=== PATIENT | female | born 1980 | race Caucasian/White ===

== ENCOUNTER 2016-12-17 13:11 | Inpatient (IN) | payer SELFPAY ==
--- NOTE | ~2016-12-17 | HP ---
Unit #: [id number] #: [id number] Patient: KANDI UNDERWOOD [id number] [place] [address] [id number] MR#: [id number] NAME: KANDI UNDERWOOD ROOM: P122 Age: 36 Sex: F Admission Date: 12/17/2016 : 1980 Attending Physician: Franki Edmondson M.D. Admitting Physician: Franki Edmondson M.D. Primary Care Physician: No Primary Care Physician HISTORY AND PHYSICAL HISTORY OF PRESENT ILLNESS Kandi is a 36-year-old admitted to [address] [place] [address] after she was found wandering in the parking lot "not making sense." She remains quite psychotic and is a poor historian so her history is taken from her chart. PAST MEDICAL HISTORY Nothing known. PAST SURGICAL HISTORY Nothing reported. ALLERGIES No known drug allergies. SOCIAL HISTORY It is not known if she smokes, uses alcohol, or illicit drugs. FAMILY HISTORY Medically not known. REVIEW OF SYSTEMS She does not answer any questions appropriately. There has been no nausea, vomiting, or diarrhea. She has had no recorded increased temperatures. CURRENT MEDICATIONS 1. SEROquel 50 mg b.i.d. and 200 mg q.h.s. 2. Thorazine 50 mg q.6 hours p.r.n. 3. Milk of magnesia p.r.n. 4. Maalox p.r.n. 5. Tylenol p.r.n. 6. Nicotine patch 14 mg every day. PHYSICAL EXAMINATION GENERAL: Alert, well nourished, and in no apparent distress. VITAL SIGNS: Blood pressure 118/70, heart rate 90, respirations 16, and temperature 98.6. SKIN: Warm and dry without rash or lesion. HEENT: Normocephalic. TMs not viewed. Oral and nasal passages clear. Conjunctivae clear. PERRLA. EOMs intact. NECK: Supple without lymphadenopathy or thyromegaly. HEART: Regular rate and rhythm without murmur. LUNGS: Clear. Unit #: [id number] #: [id number] Patient: KANDI UNDERWOOD ABDOMEN: Soft, nontender. : Not done. EXTREMITIES: No evidence of cyanosis, clubbing or edema. Moves all without focal deficit. NEUROLOGICAL: Unable to complete extended exam. She does move all extremities without focal deficit. Hand cook short order is equal. Gait not observed. IMPRESSION Psychiatric admission. RECOMMENDATIONS PSYCHIATRIC: Per psychiatrist. MEDICAL: I see no contraindication to participating in facility's activities. MEDICAL PROGNOSIS Good. MEDICAL CONDITION Stable. Dictated by... Rosalba Pollack P.A.-C. for Rocio Boothe/beny TD: 12/19/2016 06:30 JOB #: [id number] HISTORY AND PHYSICAL Page 1 of 1 X Rsoalba Pollack X HISTORY AND PHYSICAL
--- NOTE | ~2016-12-17 | PN ---
Unit #: [id number] #: [id number] Patient: KANDI UNDERWOOD [id number] [facility] [address] [place] [address] [id number] I MR#: [id number] NAME: KANDI UNDERWOOD ROOM: [facility] Age: 36 Sex: F Admission Date: 12/17/2016 : 1980 Attending Physician: Franki Edmondson M.D. Admitting Physician: Franki Edmondson M.D. Primary Care Physician: Primary Care Physician Nell ALBA PROGRESS NOTES DATE OF SERVICE 12/19/2016 DISCUSSION Kandi continues to be sleepy from her dose of Seroquel, but her agitation and confusion are reduced. She continues to be disheveled in her appearance and has minimal memory of events prior to coming the hospital. She is alert and oriented to person and location but not situation or fully to time. Memory and concentration remain impaired as noted above. ASSESSMENT Substance-induced psychotic disorder. PLAN Continue introduction of Seroquel. Dictated by... Rocio Giles/bzpaulo TD: 12/23/2016 09:14 JOB #: [id number] PEAEDUARDO PROGRESS NOTES Page 1 of 1 X Franki Edmondson MD X PROGRESS NOTE
--- NOTE | ~2016-12-17 | PA ---
Unit #: [id number] #: [id number] Patient: KANDI UNDERWOOD [id number] [place] [address] [id number] I MR#: [id number] NAME: KANDI UNDERWOOD ROOM: P122 Age: 36 Sex: F Admission Date: 12/17/2016 : 1980 Date of Assessment: 12/18/2016 Attending Physician: Franki Edmondson M.D. Admitting Physician: Franki Edomndson M.D. Primary Care Physician: Primary Care Physician No PSYCHIATRIC ASSESSMENT DATE OF SERVICE 12/18/2016. INFORMANTS The patient, partially reliable; [facility], reliable; and the patient's family, reliable. CHIEF COMPLAINT "I don't want to go to hel." HISTORY OF PRESENT ILLNESS Kandi Underwood is a 36-year-old woman, who presented accompanied by her father after he received a call that his daughter was found at [employer]'s parking lot, "not making sense." There is some suspicion she might have done methamphetamine, although the patient denies this. She was rambling and disorganized in the assessment center and was admitted on a voluntary basis for assessment of her mental state. PAST PSYCHIATRIC HISTORY The patient reports a history of bipolar disorder, but cannot provide any other treatment history or current treatment plan. She also admits to a history of drug abuse, but minimizes current use. FAMILY PSYCHIATRIC HISTORY No reported family history of mental illness or substance abuse. SOCIAL HISTORY The patient was a poor historian and would not answer questions about abuse or much of her past. According to family, she is unemployed and living with her father. PAST MEDICAL HISTORY No chronic medical problems. MEDICATIONS None known. ALLERGIES No known medication allergies. SUBSTANCE USE HISTORY The patient admits to a history of chemical dependence, but would not provide any detailed information. Unit #: [id number] #: [id number] Patient: KANDI UNDERWOOD MENTAL STATUS EXAMINATION The patient presented as a disheveled woman, who appeared older than her stated age. Vital signs were temperature 98.0, pulse 90, respirations 18, and blood pressure 118/68. Immediately upon arrival to the unit last night, she became quite agitated, calling for her father and causing a stir, to the point where she received both oral Thorazine and intramuscular Geodon and Ativan. This morning, she has minimal memory of these events. Her speech is slightly slurred, but easily understood. She has an irritable mood with a flat affect. She is alert and oriented to person and location, but not situation or time. Memory and concentration are impaired and her thought processes are stilted. ASSETS AND LIABILITIES The patient is youthful and has supportive family. Liabilities include possible drug use and possible noncompliance with treatment. 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 AXIS II: No diagnosis. AXIS III: None acute. AXIS IV: AXIS V: PSYCHIATRIC PLAN Ms. Underwood was admitted and placed on psychosis and aggression precautions. We will empirically choose Seroquel 50 mg b.i.d. and 200 mg at bedtime for calming and mood stability and obtain baseline laboratory studies to determine a possible cause of her mental status change. She will enroll in psychotherapy groups and activities. TREATMENT GOALS Resolution of psychosis, improvement in insight, and improvement in coping skills. DISCHARGE PLANNING Follow up with [facility]. ESTIMATED LENGTH OF STAY 5 days. Dictated by... Franki Edmondson M.D. [facility]/chitra TD: 12/18/2016 12:57 JOB #: [id number] Unit #: [id number] #: [id number] Patient: KANDI UNDERWOOD PSYCHIATRIC ASSESSMENT Page 1 of 1 X Franki Edmondson MD PSYCHIATRIC ASSESSMENT
== END 2016-12-21 11:00 | disposition home or self-care (01) | DRG 897 ==
LOC: P1S 13:11
DX: F15.151 Other stimulant abuse with stimulant-induced psychotic disorder with hallucinations (principal); F31.9 Bipolar disorder, unspecified
CPT/HCPCS: J2060; J3486